=== PATIENT | male | born 1975 | race Caucasian/White ===

== ENCOUNTER → 2016-11-16 | Outpatient (CLI) | payer OTHER ==
[~2016-11-16] MED LIST: ADDERALL 20 MG20 M1 PO; ALEVE220 MG PO; CALCIUM 500+D1 EAC2 PO; EXCEDRIN CAPLE1 EACH PO; FISH OIL 1,001000 M2 PO; FISHOIL PO; FLEXERIL PO; GLUCOSAMINE HC500 MG PO; LAMICTAL100 MG PO; LEXAPRO20 MG PO; MULTIVITAMINS PO; NEURONTIN300 MG PO; NORTRIPTYLINE H10 M1 PO; PERCOCET 7.5-31 EACH PO; ZOLOFT100 MG PO; [UNRECOGNIZED DRUG - OTHER] PO
== END | disposition home or self-care (01) ==
LOC: RAD 02:03
DX: M48.02 Spinal stenosis, cervical region (principal); M47.22 Other spondylosis with radiculopathy, cervical region

== ENCOUNTER 2019-11-10 16:15 | Emergency (ER) | payer BC ==
[~2019-11-10] VITALS: Ht 182.9 cm; Wt 93.4 kg
[2019-11-10] MEDS ORDERED: ABILIFY10 MG PO (16:48)
[2019-11-10 16:59] LABS: ABSOLUTE NEUTROPHILS 2.3 thou/uL (1.4-8.2); BASOPHILS 0.6 % (0.0-2.0); EOSINOPHILS 0.6 % (0.0-3.0); HEMATOCRIT 37.8 % (42.0-52.0); MCH 30.3 pg (26.0-34.0); MCHC 34.4 g/dL (28.0-37.0); MONOCYTES 5.9 % (1.0-8.0); PLATELET COUNT 232 thou/uL (150-400); POLYS 59.9 % (36.0-66.0); RDW 12.6 % (10.5-14.5); WBC 3.8 thou/uL (4.0-11.0)
[2019-11-10 17:05] LABS: ANION GAP 10 mmol/L (7-16); BUN 12 mg/dL (7-18); CALCIUM 8.3 mg/dL (8.5-10.1); CHLORIDE 101 mmol/L (98-107); CO2 24 mmol/L (21-32); GLUCOSE 118 mg/dL (74-106); POTASSIUM 3.5 mmol/L (3.5-5.1); SODIUM 135 mmol/L (136-145)
[2019-11-10 17:15] LABS: ALBUMIN 3.1 g/dL (3.4-5.0); SGOT 38 U/L (15-37); SGPT 42 U/L (30-65); TOTAL BILIRUBIN 0.4 mg/dL (<0.1-1.0); TROPONIN-I <0.06 ng/mL (<0.06)
[2019-11-10] MEDS ORDERED: TESSALON PERLE100 MG PO (18:32)
[2019-11-10] MEDS ORDERED: PROAIR HFA8.5 GM INH (18:32)
[2019-11-10] MEDS ORDERED: DOXYCYCLINE 10100 MG PO (18:56)
[2019-11-10 19:35] VITALS: BP 105/62
== END 2019-11-10 19:36 | disposition home or self-care (01) ==
LOC: ER 16:15
PROVIDERS: Physician Assistant
DX: J06.9 Acute upper respiratory infection, unspecified (principal); G43.909 Migraine, unspecified, not intractable, without status migrainosus; Z98.890 Other specified postprocedural states; Z79.899 Other long term (current) drug therapy; Z88.5 Allergy status to narcotic agent; Z87.891 Personal history of nicotine dependence